=== PATIENT | female | born 1940 | race Caucasian/White ===

== ENCOUNTER 2020-11-23 19:28 | Inpatient (IN) | payer MEDICARE, OTHER ==
[~2020-11-23] VITALS: Ht 154.9 cm; Wt 63.5 kg
[~2020-11-23 19:28] MED LIST: CALCIUM 600 +1 EAC5 PO; CELEBREX100 MG PO; CLARITIN10 MG PO; EFFER-K 10 MEQ10 MEQ PO; ENALAPRIL MALEAT5 MG PO; FASLODEX250 MG/5 M IM; FUROSEMIDE20 MG PO; KEFLEX250 MG PO; LIOTHYRONINE SO5 MCG PO; LORAZEPAM1 MG PO; OMEGA 3 500 SO1 EACH PO; OMEPRAZOLE20 M1 PO; OXYCODONE-ACET1 EAC1 PO; PERCOCET 5-3251 EACH PO; RED YEAST RICE600 MG PO; ULTRAM50 MG PO; VITAMIN D5000 UNIT PO; XGEVA120 MG/1.7 SUB-Q; ZANTAC 7575 MG PO
--- OUTSIDE RECORDS SUMMARY | 2020-11-23 19:30 | XMS ---
PreManage Notification: TARA SORIANO Security [employer]opedic Rn Events No recent Security Events currently on file CRITERIA MET - [facility] CARE PROVIDERS There are no care providers on record at this time. Richy has no Care Guidelines for this patient. [facility] VISIT COUNT (12 MO.) 1 ENO[facility] TOTAL 1 NOTE: Visits indicate total known visits. ED/C VISIT TRACKING (12 MO.) 11/23/2020 19:28 [facility] [place] TYPE: Emergency COMPLAINT: - NOT FEELING WELL INPATIENT VISIT TRACKING (12 MO.) No inpatient visits to display in this time frame [email or web address]
--- NOTE | 2020-11-24 | NUR ---
pt ARRIVES TO MS VIA STRETCHER. pt DENIES PAIN AT THIS TIME. IV SITE FLUSHED WNL. IV ANTIBIOTIC INFUSED WNL, IV MAGNESIUM INFUSING ORDERED. pt C/O SKIP AREA BURING, BARRIER CREAM APPLIED, pt STATES RELIEF FROM CREAM. ORIENTATION TO ROOM PROVIDED. CALL LIGHT IN REACH. DAUGHTER IN ROOM.
[2020-11-24] MEDS ORDERED: PIQRAY1 EACH PO (00:07)
--- NOTE | 2020-11-24 00:51 | NUR ---
CALL LIGHT ANSWERED. 1PA TO BSC FOR VOID AND BACK TO BED. ATTENDS CHANGED. CALL LIGHT IN REACH.
--- NOTE | 2020-11-24 02:28 | NUR ---
Answered call light, asssited pt to bsc, 1pa. small 'stress' incot. rocky- care down, barrier cream applied, breif changed. pt back in bed, call light within reach, family at bedside. no further assistance needed at this time.
--- NOTE | 2020-11-24 04:12 | NUR ---
NOTIFIED OF CBG 456, TELEPHONE ORDER TO ADMINISTER SS INSULIN 6 UNITS PER ORDERS. NO ADDITIONAL ORDERS AT THIS TIME.
--- NOTE | 2020-11-24 04:25 | NUR ---
pt SLEEPING, AWAKENS TO VOICE. VSS. UP TO BSC WITH HEAD GREENSKEEPER ASSIST. CBG 456. SS INSULIN ADMINISTERED ORDERED. IVF INFUSING WNL. CALL LIGHT IN REACH. NO ADDITIONAL NEEDS AT THIS TIME.
--- NOTE | 2020-11-24 07:30 | NUR ---
REPORT RECEIVED FROM SHANTELL HANSEN. PT HAS FAMILY IN CHAIR. RESTING WITH EYES CLOSED.
--- NOTE | 2020-11-24 07:45 | NUR ---
PT WAS ASLEEP IN BED WITH DAUGHTER IN THE ROOM. WHITEBOARD WAS UPDATED. CALL LIGHT IS WITHIN REACH. NO FURTHER NEEDS AT THIS TIME. THIS SALES ASSISTANT DISPLAYS WILL CHECK BACK IN LATER.
--- NOTE | 2020-11-24 08:17 | NUR ---
ADMINISTERED MORNING MEDS. PT STATES SHE IS FEELING POORLY TODAY BUT CANNOT VOCALIZE ANYTHING SPECIFIC. BS REMAINS 400. WILL ALERT DR AT MEETING.
--- NOTE | 2020-11-24 08:50 | NUR ---
Spoke with Bernarda and her daughter in law. Pt lives in a single wide trailer with her spouse who has dementia and her grandddaughter who is hearing impaired. Three sons and their wives all assist. Pt clearly stating she does not want hospice, but wants to return home with care from her family. She agrees to complete a POLST and does not want ventilation, but would like 10 min of CPR. POLST completed and place on Dr. Pandya's desk. Pt states she has a hard time using her walker and hangs on to furniture and crouch when walking. We discussed safety and using walker. Pt states she has an appt with Dr. Ramirez on and wants to cont treatment for her medastatic cancer. Pt plans on return to home on dc with her family to provide care.
--- NOTE | 2020-11-24 09:04 | NUR ---
IN ROOM TO SWITCH OUT IVF BAG. PT EATING BREAKFAST, DENIES CONCERNS.
--- NOTE | 2020-11-24 09:10 | NUR ---
THIS PROFESSOR OF MARKETING CAME TO PT'S ROOM TO SEE IF PT WANTED TO GET UP TO THE CHAIR. PT WAS ON THE BEDSIDE COMMODE WITH HELP FROM THEIR DAUGHTER IN LAW/ CAREGIVER. THIS PROFESSOR OF MARKETING ASSISSTED PT WITH GETTING BACK TO BED. PT HAD REFUSED TO SIT IN THE CHAIR. CALL LIGHT IS WITHIN REACH. NO FURTHER NEEDS AT THIS TIME.
--- NOTE | 2020-11-24 11:27 | NUR ---
Checked on pt. Resting with eyes closed.
--- NOTE | 2020-11-24 13:17 | NUR ---
CALLED DR SAEED'S OFFICE PER DR UMANA TO LET THEM KNOW SHE IS HERE WITH INCREASED BS AND COULD BE A POSSIBLE SIDE EFFECT OF NEW MED. SPOKE WITH NURSE MOORE.
--- NOTE | 2020-11-24 13:58 | NUR ---
TURNED PT IVF DOWN PER ORDER. PT RESTING IN BED. DENIES CONCERNS.
--- NOTE | 2020-11-24 14:18 | NUR ---
PATIENT IN BED RESTING WITH EYES CLOSED. VITALS AND I&O'S CHARTED. NO VOID, RN NOTIFIED. CALL LIGHT IN REACH. NO FURTHER NEEDS AT THIS TIME.
--- NOTE | 2020-11-24 15:37 | NUR ---
ADMINISTERED INSULIN FOR BS OF 303. PT TOLERATED WELL. PT STATES SHE CAN TELL HER BS HAS COME DOWN A BIT.
[2020-11-24] MEDS ORDERED: LISINOPRIL5 MG PO (16:31)
[2020-11-24] MEDS ORDERED: ONDANSETRON ODT8 MG PO (16:31)
[2020-11-24] MEDS ORDERED: TRIAMCINOLONE A15 G1 TOP (16:33)
[2020-11-24] MEDS ORDERED: POTASSIUM CHLO10 ME1 PO (16:54)
--- NOTE | 2020-11-24 16:56 | NUR ---
Medications reconciled using pharmacy records and patient interview
[2020-11-24] MEDS ORDERED: LEVOTHYROXINE88 MCG PO (16:58)
--- NOTE | 2020-11-24 17:40 | NUR ---
PATIENT UP TO BSC AND BACK TOBED, 1PA PIVOT. SKIP CARE DONE. VITALS AND I&O'S CHARTED. CALL LIGHT IN REACH. NO FURTHER NEEDS AT THIS TIME.
--- NOTE | 2020-11-24 19:34 | NUR ---
REPORT RECEIVED FROM SHANTELL PUENTE. pt SLEEPING, EYES CLOSED, BREATHING UNLABORED.
--- NOTE | 2020-11-24 20:10 | NUR ---
CBG 264. SS INSULIN ADMINISTERED. pt RESTING IN BED. DENIES TOILETING NEEDS. IV SITE FLUSHED WNL. 1+ EDEMA NOTED IN LEGS BILATERALLY, pt STATES "FEEL TIGHT". LEGS ELEVATED ON PILLOWS. CRACKLES NOTED BILATERALLY IN LUNG BASES. NOTIFIED. IVF DECREASED TO 50 ML/HR. IS AT BEDSIDE, pt VERY WEAK, 250 MLS BEST EFFORT. CALL LIGHT IN REACH.
--- NOTE | 2020-11-24 20:58 | NUR ---
IV LINE FLUSHED WNL WITH SALINE. IV ANTIBIOTIC NOW INFUSING WNL. pt DROWSY. EDUCATION PROVIDED. CALL LIGHT IN REACH. DENIES ANY NEEDS AT THIS TIME.
--- NOTE | 2020-11-24 21:36 | NUR ---
IV ANTIBIOTIC COMPLETE. IV SITE FLUSHED AND IVF INFUSING WNL. CALL LIGHT IN REACH. NO REQUESTS AT THIS TIME.
--- NOTE | 2020-11-25 00:59 | NUR ---
pt RESTING IN BED AWAKE. CBG 197, SS INSULIN ADMINISTERED ORDERED. pt C/O FEELING RESTLESS, REQUESTING HOME MEDICATION. MD PHONED, NEW ORDER REPEATED BACK FOR PO ATIVAN. MEDICATION ADMINISTERED TO pt. SBA TO BSC W FWW FOR VOID AND UP TO CHAIR. pt REQUESTING TO REST IN RECLINER. CALL LIGHT IN REACH. IVF INFUSING WNL.
--- NOTE | 2020-11-25 02:21 | EKG ---
[facility] [address] [place] [address] Signed Normal sinus rhythm Low voltage QRS Cannot rule out Anterior infarct , age undetermined Abnormal ECG No previous ECGs available Confirmed by JACKIE UMANA MD ([id number]) on 11/25/2020 2:21:18 AM Electronically Signed By: JACKIE UMANA MD 11/25/20220 PATIENT NAME: TARA SORIANO TROY Electrocardiogram DATE OF : 36 PHYSICIAN: JACKIE UMANA MD REPORT #: [id number] REPORT IS CONFIDENTIAL AND NOT TO BE RELEASED WITHOUT AUTHORIZATION
--- NOTE | 2020-11-25 05:06 | NUR ---
IN pt ROOM FOR CBG, CBG 140. VSS. ASSESSMENT COMPLETE. DENIES PAIN. CRACKLES LLL. 1+ EDEMA BLE. IVF INFUSING WNL. pt DENIES TOILETING NEEDS. CALL LIGHT IN REACH.
--- NOTE | 2020-11-25 06:13 | NUR ---
PT CALLED, UP TO BSC, VOIDED, BACK TO BED. NO OTHER NEEDS.
--- NOTE | 2020-11-25 07:30 | NUR ---
PT WAS IN BED WITH DAUGHTER IN THE ROOM. WHITEBOARD WAS UPDATED. PT WAS GIVEN A WARM WASHCLOTH FOR THEIR FACE. CALL LIGHT IS WITHIN REACH. NO FURTHER NEEDS AT THIS TIME.
--- NOTE | 2020-11-25 08:08 | NUR ---
Patient awake, a&ox4. TEAM FACILITATOR assisted patient to chair for breakfast. Patient reports she has no pain this morning. Blood sugar 143 with morning assessment. IS used at this time; pt uses independently. Patient reports she did no sleep well last night due to her "restless legs". Patient has family member at bedside assisting with cares. No current needs. Personal supplies and call light within reach.
--- NOTE | 2020-11-25 08:20 | NUR ---
THIS PSYCHIATRIC ORDERLY HELPED PT USE THE BEDSIDE COMMODE AND SIT IN THE RECLINER. PT'S DAUGHTER IS IN THE ROOM. THIS PSYCHIATRIC ORDERLY CHANGED THE BED LINENS. CALL LIGHT IS WITHIN REACH. NO FURTHER NEEDS AT THIS TIME.
--- NOTE | 2020-11-25 10:00 | NUR ---
Spoke with pt, she states she is tired as she had a bad night. Denies needs, no change in plan for dc to home when cleared.
--- NOTE | 2020-11-25 11:08 | NUR ---
Patient sitting up in chair. Recently saline locked per provider order. Patient continues to deny needs. Pt reports a poor appetite, she consumned approximately 10% of her breakfast. Patient also reports her vaginal area is irritated and reddened. This RN discussed with patient potential side effects of chemo and mucousal membranes. This RN encouraged patient to discuss this with hospitalist as well as her PCP when she has a follow up from this hospital visit. No current needs. Personal supplies and call light within reach.
--- NOTE | 2020-11-25 12:50 | NUR ---
THIS SECURITIES UNDERWRITER ASSISSTED PT WITH A SHOWER. PT WAS GIVEN A NEW GOWN, NEW BRIEF, AND A NEW PAIR OF SOCKS. PT IS NOW IN BED. CALL LIGHT IS WITHIN REACH. NO FURTHER NEEDS AT THIS TIME.
--- NOTE | 2020-11-25 14:11 | NUR ---
STRAIGHT CATH X2 ATTEMPTED[address] DR[address] UMANA NOTIFIED THAT WE WERE UNABLE TO OBTAIN A STERILE CATHERIZATION
--- NOTE | 2020-11-25 18:20 | NUR ---
THIS HEEL EDGE INKER MACHINE HELPED PT USE THE BEDSIDE COMMODE. PT IS NOW IN BED. CALL LIGHT IS WITHIN REACH. NO FURTHER NEEDS AT THIS TIME.
--- NOTE | 2020-11-25 19:24 | NUR ---
IN ROOM FOR REPORT, PT IS AWAKE IN THE BED. IV WAS BEEPING AND IS NOW INFUSING FINE. PT DENIES NEEDS AT THIS TIME. CALL LIGHT IS CLOSE.
--- NOTE | 2020-11-25 19:41 | NUR ---
IN ROOM TO ASSIT WITH BOOSTING PT IN BED WITH HELP OF ALAN STINSON. PT DENIES FURTHER NEEDS AT THIS TIME. CALL LIGHT IS CLOSE AND IV IS INFUSING FINE.
--- NOTE | 2020-11-25 21:22 | NUR ---
PT UP TO BSC WITH SBA AND FWW TO VOID 100 ML DARK URINE. STAFF ASSIST WITH SKIP CARE. BACK TO BED, CHIRAG WELL. CLEAN GOWN AND LINENS PROVIDED. ASSISTED PT TO REPOSITION. VS AND I&O COMPLETE. PT DENIES FURTHER NEEDS. CALL LIGHT IN REACH.
--- NOTE | 2020-11-25 22:40 | NUR ---
IN ROOM TO START IV ABX, NOTICED LAST DOSE WAS GIVEN LATE. WILL RETURN ABOUT 2345 TO START NEXT IV ABX DOSE. ASSISTED PT TO BS, SHE VOIDED ANOTHER 100MLS OF FOUL SMELLING URINE, BARRIER CREAM APPLIED AND SHE IS BACK IN BED. PT DENIES NEED FOR PAIN MEDICATION AT THIS TIME. SEE ASSESSMENT. PT DENIES FURTHER NEEDS AT THIS TIME. CALL LIGHT IS CLOSE.
--- NOTE | 2020-11-25 23:45 | NUR ---
IN ROOM TO START IV ABX, PT IS RESTING WITH EYES CLOSED AT THIS TIME. CALL LIGHT IS CLOSE.
--- NOTE | 2020-11-26 00:55 | NUR ---
PT IS RESTING WITH EYES CLOSED, RR IS EVEN AND NONLABORED. CALL LIGHT IS CLOSE.
--- NOTE | 2020-11-26 01:28 | NUR ---
PT IS RESTING WITH EYES CLOSED, RR IS EVEN AND NONLABORED. CALL LIGHT IS CLOSE.
--- NOTE | 2020-11-26 02:39 | NUR ---
IN ROOM TO CHECK ON PT, IV PUMP WAS BEEPING IT IS NOW INFUSING FINE. ASSISTED PT TO BS SBA FWW. PT WILL CALL WHEN SHE IS DONE.
--- NOTE | 2020-11-26 06:19 | NUR ---
IN ROOM TO RECHECK BP AFTER BEING NOTIFIED OF PT'S BP OF 93/49 ON R WRIST. CHECKED ON UPPER ARM WITH SMALL CUFF AND GOT 101/51 (64) PT DENIES LIGHTHEADEDNESS. PT DENIES FURTHER NEEDS AT THIS TIME. CALL LIGHT IS CLOSE.
--- NOTE | 2020-11-26 09:17 | NUR ---
this rn in pts room to give pt their morning meds and do morning assessmet. pt denies pain this am. pts iv went bad this rn to restart. pt tolerated well and has no complaints this am.
--- NOTE | 2020-11-26 11:47 | NUR ---
No change in plan for dc.
--- NOTE | 2020-11-26 12:07 | NUR ---
this rn in pts room to check on pt. pt states that she needs nothing at this time. pts daughter in law at bedside and is wondering when md will be by- this rn stated at some point this afternoon. no further questions
--- NOTE | 2020-11-26 14:40 | NUR ---
PT's nurse indicated that PT was feeling down. I had a nice visit with PT and she asked for prayer for her children. I acknowledged her mother's heart and prayed for her healing and for her children.
--- NOTE | 2020-11-26 14:55 | NUR ---
THIS RN IN PTS ROOM TO START PTS ANTIBIOTIC. PT STATES THAT SHE IS DOING GOOD. IN PTS ROOM TO SEE PT. PTS DAUGHTER IN LAW IN ROOM AT THIS TIME
--- NOTE | 2020-11-26 15:40 | NUR ---
THIS RN IN PTS ROOM TO BRING PT HER WARM BLANKETS AND MAALOX AND PROTONIX. PT STATES THAT SHE IS MORE COMFORTABLE AT THIS TIME FROM THE WARM BLANKETS AND MAALOX- PT HAD ACID REFLUX.
--- NOTE | 2020-11-26 17:48 | NUR ---
Patient had 2 small BMs, diaherra consistency. vitals, I&Os are complete. Patient decided to eat dinner a little later because they lost their appitite after having diaherra. Call light is in reach and patient may be interested in ordering something else later.
--- NOTE | 2020-11-26 18:47 | NUR ---
this rn placed witch jaclyn in pts rocky area due to pt reporting discomfort in her rocky area from edema and "open areas" and "up inside of vainga" this rn yesterday attempted to straight cath pt with kali green- this was unsuccessful due to pts edema and what appeared to be flase pathways- md aware. rocky area appears edmatous but not increased reddness- not due to incontince- pt does not have incontinece issues. md aware of pts ua that was sent to lab having "floating tissues" in it
--- NOTE | 2020-11-26 19:15 | NUR ---
IN ROOM FOR REPORT, PT HAS A VISITOR IN THE ROOM AND DENIES NEEDS AT THIS TIME. CALL LIGHT IS CLOSE.
--- NOTE | 2020-11-26 21:20 | NUR ---
IN TO GET VITALS, PT DOES NOT NEED TO VOID AT THIS TIME, NO FURTHER NEEDS
--- NOTE | 2020-11-26 21:55 | NUR ---
IN ROOM TO ASSESS PT AND GET IV ABX READY TO ADMINISTER. WILL RETURN TO START IV ABX ABOUT 2230 TO GET THE TIMING BACK ON SCHEDULE. PT DENIES PAIN, DENIES DIZZINES AND DENIES SOB. PT STATES SHE HAS PAIN WITH URINATION BUT STATES THE TUCKS PADS HELP. SHE DENIES THE NEED TO USE THE BSC AT THIS TIME. PT REPORTS FEELING WEAK AND TIRED TODAY. SHE DENIES NEEDS AT THIS TIME. CALL LIGHT IS CLOSE AND VISITOR IS IN THE ROOM.
--- NOTE | 2020-11-26 22:45 | NUR ---
IN ROOM TO START IV ABX. PT NEEDED TO USE BSC, ASSISTED PT 1PA FWW AND BACK TO BED. NEW TUCKS PADS PLACED ON CLEAN PAD IN PERIAREA WITH MESH UNDERWEAR. HEAT INCREASED PER PT'S REQUEST AND WARM BLANKETS PROVIDED. PT'S VISITOR IS IN THE ROOM FOR THE NIGHT. PT DENIES FURTHER NEEDS AT THIS TIME. CALL LIGHT IS CLOSE.
--- NOTE | 2020-11-27 01:00 | NUR ---
IN TO ASSIST PT TO THE BSC, NEW SKIP PAD IN PLACE, PT BACK TO BED AT THIS TIME, NO FURTHER NEEDS
--- NOTE | 2020-11-27 02:55 | NUR ---
PT IS RESTING WITH EYES CLOSED RR IS EVEN AND NONLABORED. CALL LIGHT IS CLOSE.
--- NOTE | 2020-11-27 04:20 | NUR ---
PT CALLED, IV ALARMING. NEW BAG TKO HUNG. IV WNL. TOURIST GUIDE ASSIST RN WITH REPOSITIONING NO OTHER NEEDS.
--- NOTE | 2020-11-27 04:33 | NUR ---
PT IS RESTING WITH EYES CLOSED, RR IS EVEN AND NONLABORED. CALL LIGHT IS CLOSE.
--- NOTE | 2020-11-27 06:49 | NUR ---
IN ROOM TO ADMINISTER MEDICATIONS AND ASSESS PT. SHE WAS ASSISTED TO BSC BY ZAY LORD AND VS TAKEN. PT DENIES PAIN THIS MORNING EXCEPT WITH URINATION. TUCKS PADS IN PLACE WITH FRESH PAD AND MESH PANTIES. PT DENIES NEEDS AT THIS TIME. CALL LIGHT IS CLOSE AND IV ABX INFUSING.
--- NOTE | 2020-11-27 07:50 | NUR ---
PATIENT TO CHAIR FOR BREAKFAST, 1PA FWW. DAUGHTER IN ROOM. WARM WASHCLOTH GIVEN. LINENS CHANGED. CALL LIGHT IN REACH. NO FURTHER NEEDS AT THIS TIME.
--- NOTE | 2020-11-27 08:15 | NUR ---
REPORT RECEIVED FROM NIGHT RN AND PT CARE RESUMED. PT. IS ALERT AND ORIENTED AND FAMILY MEMBER IN THE ROOM. PT. DENIES PAIN AT THIS TIME. ON ROOM AIR AND LUNGS CLEAR THROUGHOUT. PT. HAS EATEN 10% AND STATES SHE IS NOT HUNGRY. GIVEN A CLEAR ENSURE AND NUTRITION DISCUSSED. PT. REPORTS TUCKS PADS HAVE HELPED WITH LABIA PAIN. DISCUSSED COLLECTING STOOL SAMPLE, MEDS AND POC. P.T. IN THE ROOM.
--- NOTE | 2020-11-27 11:00 | NUR ---
PATIENT IN CHAIR AT THIS TIME WORKING WITH PT. BED BATH GIVEN. NEW GOWN AND ATTENDS IN PLACE. SKIP CARE DONE. SHAMPOO CAP DONE. WARM BLANKETS GIVEN. DAUGHTER IN ROOM. CALL LIGHT IN REACH. NO FURTHER NEEDS AT THIS TIME.
--- NOTE | 2020-11-27 13:43 | NUR ---
PATIENT IN CHAIR WATCHING TV. DAUGHTER IN ROOM. VITALS AND I&O'S CHARTED. CALL LIGHT IN REACH. NO FURTHER NEEDS AT THIS TIME.
--- NOTE | 2020-11-27 15:36 | NUR ---
PT. REPORTS FEELING MUCH BETTER AFTER HAVING A BM THIS AFTERNOON. STOOL SAMPLE COLLECTED.
--- NOTE | 2020-11-27 17:46 | NUR ---
PATIENT IN BED WATCHING TV. SKIP CARE DONE. VITALS AND I&O'S DONE. CALL LIGHT IN REACH. NO FURTHER NEEDS AT THIS TIME.
--- NOTE | 2020-11-27 19:26 | NUR ---
In bed, watching tv, no c/o pain,
--- NOTE | 2020-11-27 20:14 | NUR ---
PT ASSISTED TO THE TOILET, COFFEE PROVIDED TO THE , PTs WATCHING OVER PT WHILE SHE'S UP TO THE TOILET FOR A BM, WILL CALL WHEN READY TO GET BACK TO BED
--- NOTE | 2020-11-27 20:15 | NUR ---
IN TO PROVIDE PT WITH WARM BLANKETS FOR LOWER LEGS/FEET, NO FURTHER NEEDS AT THIS TIME
--- NOTE | 2020-11-27 21:56 | NUR ---
C/O LEG SPASMS, RESTLESS LEGS, DR ALARCON NOTIFIED, NEW ORDERS FOR ATIVAN 1MG PO/PRN HS OBTAINED. PT NOTIFIED
--- NOTE | 2020-11-27 22:10 | NUR ---
IN TO GET VITALS, RN IN RM, NO FURTHER NEEDS AT THIS TIME
--- NOTE | 2020-11-27 22:17 | NUR ---
medicated with ativan 1mg po c/o restless legs,
--- NOTE | 2020-11-27 23:14 | NUR ---
EYES CLOSED, CALMER, NO FURTHER C/O RESTLESS LEGS, ANXIETY. IV ABX INFUSING. CALL LIGHT AND FLUIDS AT BEDSIDE
--- NOTE | 2020-11-28 02:05 | NUR ---
RESTING, EYES CLOSED, GOT UP TO BR EARLIER, VOIDED, BACK TO BED, IV ABX INFUSING
--- NOTE | 2020-11-28 03:00 | NUR ---
in to assist pt to the toilet, no further needs at this time
--- NOTE | 2020-11-28 05:21 | NUR ---
PT HAS SLEPT OFF AND ON. ON ROOM AIR, REPOSITIONS SELF. WAS MEDICATED AT BEGINNIG OF SHIFT WITH ATIVAN PER HER C/O INCREASED ANXIETY AND RESTLESS LEGS, EFFECTIVE. USES CALL LIGHT, UP TO BR SEVERAL TIMES, VOIDING SMALL AMOUNT URINEL, LEBIA CONTINUES TO BE PAINFUL WITH URINATION AND WIPING, RED, EDEMATOUS, LODOCAINE OINTMENT-TUCK WIPES AND A&D APPLIED AFTER VOIDING. SL PATENT, NO C/O ADVERSE REACTION TO IV ABX. RESTRICTED L ARM FUE TO MASTECTOMY. HAS BEEN COOPERATIVE, ALERT AND EASILY REDIRECTABLE, TOLERATING LIQUIDS WELL, NO EMESIS.
--- NOTE | 2020-11-28 06:07 | NUR ---
up to br, sba, tolerated well, does own pericare, tucks to vaginal/urethral area, tender, edematous. back to bed, tolerating small sipa of fluids
--- NOTE | 2020-11-28 08:30 | NUR ---
REPORT RECEIVED FROM NIGHT RN AND PT. CARE RESUMED. PT. IS ALERT AND ORIENTED TO ALL. SHE C/O VAGINAL PAIN. LABIA AND PUBIC MOUND EDEMATOUS AND PAINFUL TO TOUCH. LIDOCAINE CREAM APPLIED AND TUCKS PADS IN PLACE. ADMIN. PAIN MED. PT. STATES SWELLING BEGAN THREE WEEKS AGO AND SHE HAD DISCUSSED IT WITH DR. SAEED. WILL CONTINUE TO MONITOR. IV SITE WNL AND IV ABX INFUSING. PT. LEFT RESTING WITH CALL LIGHT IN REACH.
--- NOTE | 2020-11-28 08:45 | NUR ---
UPDATED ON PRIMARY RN REPORT/ASSESSMENT OF PATIENTS SKIP AREA/CLITORIS SWELLING AND PAIN.
--- NOTE | 2020-11-28 09:45 | NUR ---
PT. USED CALL LIGHT APPROPRIATELY TO GO TO THE BATHROOM. AMBULATED WITH SBA AND FWW. SHE HAD A SMALL FORMED BM AND VOIDED. PT. BACK TO THE CHAIR AND LEFT RESTING WITH CALL LIGHT IN REACH.
--- NOTE | 2020-11-28 10:28 | NUR ---
Vitals, I&Os are complete. Call light is in reach. Lunch has been ordered.
--- NOTE | 2020-11-28 11:17 | NUR ---
I was able to meet with Bernarda and her son this morning. We discussed that Bernarda may discharge to home this weekend pending cultures and lab results, and her progression. In our discussion we talked about the recommendation that she have PT, OT, and Home Health on discharge. Both the patient and son are agreeable to this plan, and they prefer Home Health out of [place], as they reside in [place]. Pt and son explain home living situation where patient resides with her and niece, and per son, their are several family members that live close by and are also in the home often to help. Pt and son both feel comfortable with her going home to current living situation and having PT, OT, and Home Health on discharge.
--- NOTE | 2020-11-28 11:20 | NUR ---
PT. USED CALL LIGHT APPROPRIATELY BECAUSE IV PUMP IS BEEPING. IV ABX DISCONNECTED AND PT. SL. SON IS IN THE ROOM. PT. DENIED FURTHER NEEDS.
--- NOTE | 2020-11-28 14:13 | NUR ---
PT. UP TO THE BATHROOM WITH SBA AND FWW. VOIDED SMALL AMOUND OF CONCENTRATED CLOUDY URINE. PT. AMBULATED AROUND THE ROOM THREE TIMES BUT DID NOT WANT TO AMBULATE IN THE HALLWAYS. PT. LEFT RESTING WITH SON AT BEDSIDE.
--- NOTE | 2020-11-28 22:00 | NUR ---
Up to br. sba/fww, voided yellow urine. decreased redness and edema of vaginal area noted, paper plate machine tender but not as tender as yesterday, less red. applied lidocaine ointment, benadryl oitment, tucks and A&D ointment. cooperative, procedure explained. back to bed, tolerating liquids well. no emesis, no c/o pain. edema to LE 1+ elevated with pillows, warm blankets give, helped with [id number]. IS at bedside, call light and fluids too.
--- NOTE | 2020-11-28 23:42 | NUR ---
RESTING, EYES CLOSED, NO DISTRESS, ON ROOM AIR. CALM, RESP EVEN UNLABORED. IV ABX INFUSING, NO C/O ADVERSE REACTION. LE ELEVATED. RESTRICTED L ARM USE/MASTECTOMY. CALL LIGHT AND FLUIDS AT HANDS RECH, BED ALARM ON
--- NOTE | 2020-11-29 00:51 | NUR ---
RESTING, EYES CLOSED, RESP EVEN, UNLABORED, IV ABX INFUSING W/O PROBLEMS. BED ALARM ON AT HS. CALL LIGHT AND FLUIDS AT BEDSIDE
--- NOTE | 2020-11-29 02:41 | NUR ---
UP TO BR, VOIDED SMALL AMOUNT YELLOW URINE, APPLIED OWN BENADRYL OINTMENT. STATED VAGINAL AREA FEELS BETTER, STILL DOLAN AND HURTS WHEN URINATING BUT BETTER. BACK TO BED SBA/FWW, TOLERATING SIPS OF FLUIDS. CALL LIGHT AT HANDS REACH. ON ROOM AIR, NO N/V, NO C/O PAIN
--- NOTE | 2020-11-29 04:52 | NUR ---
PT RECEIVED ATIVAN 1MF PO ON REQUESTS PER INSOMNIA AND RESTLESS LEGS. EFFECTIVE, HAS SLEPT THIS SHIFT. UP TO BR WITH SBA/FWW, VOIDING SMALL AMOUNT OF URINE. MUCH IMPROVED REDNESS AND EDEMA OF VAGINAL AREA. CONTINUES TO C/O BURNING/PAIN WITH URINATION. TOLERATING DIET WELL, NO EMESIS. HAS TOLERATED IVF WELL, NO C/O ADVERSE REACTION. EDEMA TO LE, ELEVATED. L ARM RESTRICTION DUE TO MASTECTOMY, LYMPHEDEMA PRESENT, GOOD CMS. PLEASANT AND COOP. LOOKING FORWARD TO GOING HOME TODAY WITH OUTPT HH/PT THERAPIES. USES CALL LIGHT WELL
--- NOTE | 2020-11-29 06:38 | NUR ---
coop, no c.o advese reaction to iv abx. on room air.
--- NOTE | 2020-11-29 08:00 | NUR ---
PATIENT UP TO BATHROOM THEN TO CHAIR, SBA FWW. WARM WASHCLOTH GIVEN. LINENS CHANGED. CALL LIGHT IN REACH. NO FURTHER NEEDS AT THIS TIME.
--- NOTE | 2020-11-29 08:30 | NUR ---
REPORT RECEIVED FROM NIGHT RN AND PT. CARE RESUMED. PT. IS ALERT AND ORIENTED. SHE DENIES PAIN AT THIS TIME. IV SITE INFILTRATING WITH ZOSYN INFUSING. IV REMOVED, CATH INTACT. ARM ELEVATED. WILL CONTINUE TO MONITOR. MD NOTIFIED. SHE IS ON ROOM AIR AND LUNGS CLEAR THROUGHOUT. +2 EDEMA PRESENT IN LUE AND BLE. PT. REPORTS VAGINAL PAIN HAS IMPROVED THROUGH THE NIGHT. HER APPETITE HAS INCREASED AND SHE FINISHED ALL OF HER BREAKFAST. DISCUSSED POC. PT. LEFT RESTING WITH CALL LIGHT IN REACH.
[2020-11-29] MEDS ORDERED: AUGMENTIN 875-1 EACH PO (10:45)
--- NOTE | 2020-11-29 10:46 | NUR ---
PATIENT SITTING IN CHAIR RESTING AFTER WORKING WITH PT. VITALS AND I&O'S CHARTED. CALL LIGHT IN REACH. NO FURTHER NEEDS AT THIS TIME.
[2020-11-29] MEDS ORDERED: PANTOPRAZOLE SO40 MG PO (10:56)
--- NOTE | 2020-11-29 14:12 | NUR ---
Patient is dressed. Vitals, I&Os are done.
--- NOTE | 2020-11-29 14:21 | NUR ---
ALL DISCHARGE INSTRUCTIONS REVIEWED AND QUESTIONS ANSWERED WITH PT. AND SON. PT. LEFT WITH BIOSTATISTICS DIRECTOR AND SON VIA WHEELCHAIR WITH ALL BELONGINGS.
--- NOTE | 2020-12-01 09:31 | NUR ---
FAXED HOME HEALTH ORDER PLACED OVER WEEKEND DISCHARGE WITH FACESHEET AND CLINICALS TO [facility]. NOTES FROM CASE MANAGEMENT LAST WEEK INDICATE THIS WAS PLACE CHOSEN. CONFIRMATION RECEIVED 921AM. CALLED AND SPOKE WITH LOVE TO LET HER KNOW IT WENT THROUGH. SHE STATES THEY WILL START WORKING ON THIS.
== END 2020-11-29 14:16 | disposition home health service (06) | DRG 682 ==
LOC: ED 19:28 → MS 22:56
PROVIDERS: ADMIT Internal Medicine; ATTEND Internal Medicine
DX: N17.9 Acute kidney failure, unspecified (principal); R53.2 Functional quadriplegia; C79.51 Secondary malignant neoplasm of bone; C79.82 Secondary malignant neoplasm of genital organs; C78.6 Secondary malignant neoplasm of retroperitoneum and peritoneum; N39.0 Urinary tract infection, site not specified; Z20.822 Contact with and (suspected) exposure to COVID-19; R73.9 Hyperglycemia, unspecified; R19.7 Diarrhea, unspecified; E83.42 Hypomagnesemia; E86.1 Hypovolemia; E86.0 Dehydration; T45.1X5A Adverse effect of antineoplastic and immunosuppressive drugs, initial encounter; R73.03 Prediabetes; E89.0 Postprocedural hypothyroidism; I12.9 Hypertensive chronic kidney disease with stage 1 through stage 4 chronic kidney disease, or unspecified chronic kidney disease; N18.9 Chronic kidney disease, unspecified; K21.9 Gastro-esophageal reflux disease without esophagitis; G89.4 Chronic pain syndrome; Z85.3 Personal history of malignant neoplasm of breast; Z90.12 Acquired absence of left breast and nipple; Z98.890 Other specified postprocedural states; Z88.2 Allergy status to sulfonamides; Z88.5 Allergy status to narcotic agent; Z88.8 Allergy status to other drugs, medicaments and biological substances; Z79.899 Other long term (current) drug therapy; Z90.49 Acquired absence of other specified parts of digestive tract
CPT/HCPCS: 80053; 80500; 81001; 83036; 83615; 83735; 84443; 85007; 85025; 87045; 87088; 87177; 87328; 87329; 87493; 93005; 93010; 97110; 97116; 97140; 97162; 97165; 97535; A9270-GY; C9803; J0696; J1650; J1815; J2405; J2543; J3475; J7030; J7121; U0003